=== PATIENT | female | born 1955 | race Caucasian/White ===

== ENCOUNTER 2019-10-02 21:30 | Emergency (ER) | END 2019-10-03 00:58 | disposition home or self-care (01) | DX: R42 Dizziness and giddiness (principal); M54.2 Cervicalgia; R51 Headache; M79.604 Pain in right leg; M79.601 Pain in right arm; N39.0 Urinary tract infection, site not specified; R20.2 Paresthesia of skin; F41.9 Anxiety disorder, unspecified; Z79.899 Other long term (current) drug therapy; W10.9XXA Fall (on) (from) unspecified stairs and steps, initial encounter; Y93.89 Activity, other specified; Y92.89 Other specified places as the place of occurrence of the external cause; Y99.8 Other external cause status | CPT/HCPCS: 36415; 70450; 71045; 72125; 80048; 80076; 81000; 81001; 85025; 87077; 87086; 87186; 93005; 96372; 99284; J1885 ==